=== PATIENT | female | born 1970 | race Caucasian/White ===

== ENCOUNTER 2023-07-21 19:27 | Emergency (ER) | payer MEDICAID ==
[~2023-07-21] VITALS: Ht 157.5 cm; Wt 51.4 kg
[2023-07-21 21:17] VITALS: TEMP 98.1
[2023-07-21 22:12] VITALS: BP 132/73; PULSE 85; RESP 14
== END 2023-07-22 00:41 | disposition left against medical advice (07) ==
LOC: EMS 19:29
DX: F10.129 Alcohol abuse with intoxication, unspecified (principal); J45.909 Unspecified asthma, uncomplicated; F17.210 Nicotine dependence, cigarettes, uncomplicated; Z98.890 Other specified postprocedural states
CPT/HCPCS: 99283; Z7502